=== PATIENT | female | born 1955 | race African-American/Black ===

== ENCOUNTER 2020-12-24 22:57 | Inpatient (IN) | payer OTHER ==
[~2020-12-24] VITALS: Ht 165.1 cm; Wt 96.6 kg
[2020-12-24 23:53] LABS: BASOPHILS % 0.9 % (0.0-2.0); HEMATOCRIT. 35.5 % (36.0-48.0); HEMOGLOBIN. 12.1 g/dL (12.0-16.0); MEAN CORPUSCULAR HEMOGLOBIN 30.6 pg (28.0-32.0); MEAN CORPUSCULAR VOLUME 89.9 fL (81.0-99.0); MEAN PLATELET VOLUME 7.6 fl (7.4-10.4); MONOCYTES % 6.2 % (2.0-8.0); NEUTROPHILS % 46.9 % (40.0-76.0); PLATELET 235 x1000/uL (130-400); RED BLOOD CELL COUNT 3.95 mill/uL (4.2-5.4); RED CELL DISTRIBUTION WIDTH 13.9 % (11.6-14.6)
[2020-12-24 23:57] LABS: CHLORIDE 111 mEq/L (98-107)
[2020-12-25] MEDS ORDERED: MORPHINE SULFATE 4 MG/ML CPJ (NOT FOR IM USE) IV STA (00:14)
[2020-12-25] MEDS ORDERED: ASPIRIN 81MG TABLET PO ONE (00:15)
[2020-12-25] MEDS ORDERED: NITROGLYCERIN 0.4MG TABLET SL SL PRN (00:15)
[2020-12-25] MEDS ORDERED: ONDANSETRON HCL 4MG/2ML INJ IV PRN (07:00)
[2020-12-25] MEDS ORDERED: GUAIFENESIN 200MG/10ML SUGAR FREE UDC PO PRN (07:00)
[2020-12-25] MEDS ORDERED: DIPHENHYDRAMINE 50MG/ML VIAL IV PRN (07:00)
[2020-12-25] MEDS ORDERED: HYDROCODONE/ACETAMINOPHEN 5/325MG TABLET PO PRN (07:00)
[2020-12-25] MEDS ORDERED: DOCUSATE SODIUM 100MG CAPSULE PO PRN (07:00)
[2020-12-25] MEDS ORDERED: HYDRALAZINE 20MG/ML VIAL IV PRN (07:00)
[2020-12-25] MEDS ORDERED: ACETAMINOPHEN 325MG TABLET PO PRN (07:00)
[2020-12-25] MEDS ORDERED: MAGNESIUM/ALUMINUM HYDROXIDE/SIMETHICONE 30ML UDC PO PRN (07:00)
[2020-12-25] MEDS ORDERED: CLONIDINE 0.1MG TABLET PO PRN (07:00)
[2020-12-25] MEDS ORDERED: LORAZEPAM 2MG/ML CPJ IV PRN (07:00)
[2020-12-25] MEDS ORDERED: IPRATROPIUM/ALBUTEROL 0.5-3(2.5)MG/3ML NEB HHN PRN (07:00)
[2020-12-25 08:40] VITALS: BP 115/67
[2020-12-25 08:42] VITALS: BP 115/67
[2020-12-25] MEDS ORDERED: ASPIRIN 81MG EC TABLET PO ONE (08:45)
[2020-12-25] MEDS: CLOPIDOGREL 75MG TABLET PO SCH (10:20)
[2020-12-25] MEDS: ENOXAPARIN 40MG/0.4ML SYR SUBCUT SCH (10:20)
[2020-12-25] MEDS: METOPROLOL TARTRATE 25MG TABLET PO SCH ×2 (10:20→20:26)
[2020-12-25] MEDS: LORAZEPAM 1MG TABLET PO PRN ×2 (10:20→20:26)
[2020-12-25] MEDS ORDERED: METO100T16 MT (11:24)
[2020-12-25] MEDS ORDERED: LISI20TA31 MT (11:24)
[2020-12-25] MEDS ORDERED: AMLO2.5T2 MT (11:25)
[2020-12-25] MEDS ORDERED: ISOS20TA57 MT (11:26)
[2020-12-25] MEDS ORDERED: CLOP-31 MT (11:26)
[2020-12-25] MEDS ORDERED: LIP40 MT (11:26)
[2020-12-25] MEDS ORDERED: ASPI-1497 MT (11:26)
[2020-12-25 11:51] LABS: CHLORIDE 112 mEq/L (98-107)
[2020-12-25 12:00] VITALS: BP 127/74
[2020-12-25] MEDS: MORPHINE SULFATE 2 MG/ML CPJ (NOT FOR IM USE) IV PRN (12:28)
[2020-12-25 14:46] LABS: CREATINE KINASE MB FRACTION 2.7 ng/mL (0.5-3.6)
[2020-12-25] MEDS: SODIUM CHLORIDE 0.9% INJ 3ML FLUSH IVF SCH ×2 (15:18→20:27)
[2020-12-25 16:00] VITALS: BP 113/62
[2020-12-25] MEDS ORDERED: ATORVASTATIN CALCIUM 20MG TABLET PO SCH (21:00)
[2020-12-25 21:03] VITALS: BP 123/72
[2020-12-25 23:42] LABS: CREATINE KINASE 256 IU/L (26-192)
[2020-12-25 23:43] LABS: CREATINE KINASE MB FRACTION 1.6 ng/mL (0.5-3.6)
[2020-12-26] VITALS: BP 128/70
[2020-12-26 04:00] VITALS: BP 129/66
[2020-12-26] MEDS: SODIUM CHLORIDE 0.9% INJ 3ML FLUSH IVF SCH (05:01)
[2020-12-26 06:56] LABS: BASOPHILS % 1.1 % (0.0-2.0); CHLORIDE 108 mEq/L (98-107); HEMATOCRIT. 35.6 % (36.0-48.0); MEAN CORPUSCULAR HEMOGLOBIN 30.8 pg (28.0-32.0); MEAN CORPUSCULAR VOLUME 91.7 fL (81.0-99.0); NEUTROPHILS % 29.9 % (40.0-76.0); PLATELET 207 x1000/uL (130-400); RED BLOOD CELL COUNT 3.88 mill/uL (4.2-5.4)
[2020-12-26] MEDS: MORPHINE SULFATE 2 MG/ML CPJ (NOT FOR IM USE) IV PRN ×2 (07:13→12:42)
[2020-12-26 07:19] LABS: HDL CHOLESTEROL 46 mg/dL (40-59)
[2020-12-26 07:21] LABS: LDL CHOLESTEROL 73 mg/dL (5-100)
[2020-12-26 08:00] VITALS: BP 138/82
[2020-12-26] MEDS: METOPROLOL TARTRATE 25MG TABLET PO SCH (08:30)
[2020-12-26] MEDS: ENOXAPARIN 40MG/0.4ML SYR SUBCUT SCH (08:31)
[2020-12-26] MEDS: CLOPIDOGREL 75MG TABLET PO SCH (08:38)
[2020-12-26] MEDS ORDERED: ASPIRIN 81MG EC TABLET PO SCH (09:00)
[2020-12-26 12:00] VITALS: BP 122/66
[2020-12-26 14:33] VITALS: BP 122/66
[2020-12-26 16:00] VITALS: BP 139/99
== END 2020-12-26 16:25 | disposition home or self-care (01) | DRG 303 ==
LOC: ER 22:57 → 6WST 12-25 01:27 → ENRESERV 12-25 08:14
PROVIDERS: ADMIT Internal Medicine; ATTEND Internal Medicine
DX: I25.110 Atherosclerotic heart disease of native coronary artery with unstable angina pectoris (principal); E78.5 Hyperlipidemia, unspecified; E87.6 Hypokalemia; F17.210 Nicotine dependence, cigarettes, uncomplicated; I10 Essential (primary) hypertension; I44.7 Left bundle-branch block, unspecified; R77.8 Other specified abnormalities of plasma proteins; G89.29 Other chronic pain; M54.9 Dorsalgia, unspecified; I25.2 Old myocardial infarction; Z95.5 Presence of coronary angioplasty implant and graft; Z79.899 Other long term (current) drug therapy
CPT/HCPCS: 36415; 71045; 80048; 80053; 80061; 82550; 82553; 83880; 84443; 84484; 85025; 93005; 93306; 93970; 99291; J1650; J2270